=== PATIENT | female | born 1980 | race Caucasian/White ===

== ENCOUNTER 2023-11-03 06:52 | Day surgery (SDC) | payer OTHER ==
[~2023-11-03] VITALS: Ht 167.6 cm; Wt 61.2 kg
[2023-11-03] MEDS ORDERED: fentaNYL citrate 0.05 MG/ML VIAL ONE (07:39)
[2023-11-03] MEDS: fentaNYL citrate 0.05 MG/ML VIAL IVP ONE (08:07)
[2023-11-03] MEDS: LIDOCAINE 2% 100 MG/5 ML UJET TP ONE (08:11)
== END 2023-11-03 09:06 | disposition home or self-care (01) ==
LOC: MDS 06:52 → MMU 07:01 → MDS 09:06
PROVIDERS: ATTEND Internal Medicine Gastroenterology
DX: R10.32 Left lower quadrant pain (principal); Z98.51 Tubal ligation status; Z87.442 Personal history of urinary calculi; Z80.3 Family history of malignant neoplasm of breast; Z90.710 Acquired absence of both cervix and uterus
CPT/HCPCS: 45378; J3010